=== PATIENT | female | born 1985 | race Caucasian/White ===

== ENCOUNTER 2020-07-23 12:07 | Emergency (ER) | payer SELFPAY ==
[~2020-07-23] VITALS: Ht 172.7 cm; Wt 107.0 kg
[~2020-07-23 12:07] MED LIST: EMETROL ORAL S118 ML PO; PEPTO-BISM262 MG/15 PO
== END 2020-07-23 13:51 | disposition home or self-care (01) ==
LOC: ED 12:07
DX: S63.284A Dislocation of proximal interphalangeal joint of right ring finger, initial encounter (principal); W22.8XXA Striking against or struck by other objects, initial encounter; Z87.891 Personal history of nicotine dependence; Z88.0 Allergy status to penicillin; Z88.8 Allergy status to other drugs, medicaments and biological substances
CPT/HCPCS: 26770; 73140; 99283-25

== ENCOUNTER 2023-03-02 12:41 | Emergency (ER) | payer OTHER ==
[~2023-03-02] VITALS: Ht 172.7 cm; Wt 104.3 kg
--- OUTSIDE RECORDS SUMMARY | ~2023-03-02 | XMS | Continuity of Care Document ---
Demographics + + + | Address | [address] | | | [place] [address] | + + + | Preferred Language | Unknown | + + + | Marital Status | | + + + | Caodaism Affiliation | Unknown | + + + | Race | White | + + + | Ethnic Group | Unknown | + + + Author + + + | Author | [facility] | + + + | Organization | [facility] | + + + | Address | [address] | | | [place] [address] | + + + | Phone | | + + + Care Team Providers + + + + | Care Marine Fireman Name | Role | Phone | + + + + Unavailable | Unavailable | + + + + Allergies and Intolerances + + + + + | date | description | facility | type | + + + + + | (no date) | clavulanic acid | [facility] | (unknown) | + + + + + | (no date) | amoxicillin | [facility] | (unknown) | + + + + + Encounters No information. Functional Status No information. Immunizations No information. Medications No information. Problems No information. Procedures No information. Results/Labs No information. Social History No information. Vital Signs No information."
--- OUTSIDE RECORDS SUMMARY | ~2023-03-02 | XMS | Continuity of Care Document ---
Demographics + + + | Address | [address] | | | [place] [address] | + + + | Preferred Language | Unknown | + + + | Marital Status | | + + + | Samaritan Affiliation | Unknown | + + + | Race | White | + + + | Ethnic Group | Unknown | + + + Author + + + | Author | [facility] | + + + | Organization | [facility] | + + + | Address | [address] | | | [place] [address] | + + + | Phone | | + + + Care Team Providers + + + + | Care Firefighting Equipment Specialist Name | Role | Phone | + [...]
[2023-03-02] MEDS ORDERED: SERTRALINE HCL100 MG PO (14:39)
[2023-03-02] MEDS ORDERED: LISINOPRIL2.5 MG PO (14:39)
[2023-03-02] MEDS ORDERED: METFORMIN HCL500 MG PO (14:39)
[2023-03-02] MEDS ORDERED: VITAMIN D21250 MCG PO (14:40)
[2023-03-02 16:30] VITALS: BP 127/75
== END 2023-03-02 16:30 | disposition home or self-care (01) ==
LOC: ED 12:41
DX: S03.41XA Sprain of jaw, right side, initial encounter (principal); X58.XXXA Exposure to other specified factors, initial encounter; Z87.891 Personal history of nicotine dependence; Z88.0 Allergy status to penicillin; Z88.1 Allergy status to other antibiotic agents; Z79.899 Other long term (current) drug therapy
CPT/HCPCS: 99283

== ENCOUNTER 2023-07-18 05:56 | Day surgery (SDC) | payer OTHER ==
[2023-07-12 13:40] VITALS: BP 100/68
[~2023-07-18] VITALS: Ht 172.7 cm; Wt 98.2 kg
[~2023-07-18 05:56] MED LIST changes: +LISINOPRIL2.5 MG PO; +METFORMIN HCL500 MG PO; +SERTRALINE HCL100 MG PO; +VITAMIN D21250 MCG PO
[2023-07-18 06:09] VITALS: BP 122/72
[2023-07-18] MEDS ORDERED: MOUNJARO2.5 MG/0.5 SQ (06:13)
[2023-07-18] MEDS ORDERED: FENOFIBRATE145 MG PO (06:13)
--- NOTE | 2023-07-18 07:17 | NUR ---
PT IN GOOD SPIRITS. NO CONCERNS. LEFT ROOM WHEN CLOTHING CHANGE WAS REQUIRED. PRAYED SILENTLY FOR SUCCESSFUL PROCEDURE AND [facility] RECOVERY.
--- NOTE | 2023-07-18 09:31 | NUR ---
07/18/23 0931 Sonali Fraga SNORING RESPIRATIONS HEARD. JAW THRUST OPENS AIRWAY. MASK FOG IS VISUALIZED.
[2023-07-18] MEDS ORDERED: PERCOCET 7.5-31 EACH PO (09:43)
[2023-07-18] MEDS ORDERED: ACETAMINOPHEN325 M1 PO (09:44)
[2023-07-18] MEDS ORDERED: TYLENOL EXTRA500 MG PO (09:44)
--- NOTE | 2023-07-18 10:05 | NUR ---
PT ARRIVES TO DS UNIT VIA STRETCHER FROM PACU. PT IS A&O X4 AND REPORTS NO NAUSEA, DIZZINESS, N/T AT THIS TIME. REPORT RECEIVED FROM CAYLA LOUISE W/ AT BEDSIDE. PRESCRIPTION GIVEN TO TO TAKE TO PHARMACY AND GET TAMPON FOR PT AT HER REQUEST. ABDOMINAL BINDER IN PLACE. AMY DRAIN IS TO SUCTION W/SMALL AMOUNT OF SS DRAINAGE AT THIS TIME, PT EDUCATED ABOUT NOT PULLING AND MAINTAINING POSITIONING OF AMY DRAIN, AND PT STATE VERBAL UNDERSTANDING AT THIS TIME. PT REPORTS PAIN 6/10 AT THIS TIME, CRACKERS/JELLO/ICE WATER AT BEDSIDE. CALL LIGHT WITHIN REACH, NO FURTHER NEEDS AT THIS TIME.
[2023-07-18 10:06] VITALS: BP 126/60
--- NOTE | 2023-07-18 10:34 | NUR ---
IN PT ROOM FOR CLERICAL TRANSCRIBER. PT TOLERATED ORAL FOODS W/OUT ANY DIFFICULTY SWALLOWING AND NO REPORTED NAUSEA. PAIN CLERICAL TRANSCRIBER (SEE EMAR). CALL LIGHT WITHIN REACH, NO FURTHER NEEDS AT THIS TIME.
[2023-07-18 11:06] VITALS: BP 111/60
--- NOTE | 2023-07-18 11:15 | NUR ---
IN PT ROOM TO ANSWER CALL LIGHT FOR ASSISTANCE TO USE RESTROOM. STANDBY ASSIST W/PT TO RESTROOM FOR 200 ML OUTPUT OF URINE. SMALL AMOUNT OF BLOOD D/T PT ON PERIOD AT THIS TIME. PT REPORTS SMALL AMOUNT OF DIZZINESS DURING AMBULATION BACK TO ROOM. PT IN BED, COOL RAG PROVIDED FOR FOREHEAD, PT STATES DIZZINESS SUBSIDING W/REST. WARM BLANKETS PROVIDED. CALL LIGHT WITHIN REACH, NO FURTHER NEEDS AT THIS TIME.
--- NOTE | 2023-07-18 11:41 | NUR ---
IN ROOM TO ANSWER PT CALL LIGHT, PT STATES SHE IS READY TO GO HOME. PT STATES PAIN HAS REDUCED TO 1 OR 2/10 AT THIS TIME. SURGICAL DRESSING INTACT W/SMALL AMOUNT OF SS DRAINAGE AT AMY DRAIN SITE AND MIDLINE INCISION SITE, ABDOMINAL BINDER IN PLACE. PT GETTING DRESSED AT THIS TIME, CALL LIGHT WITHIN REACH, AT BEDSIDE TO ASSIST.
--- NOTE | 2023-07-18 11:54 | NUR ---
IN PT ROOM FOR DISCHARGE EDUCATION. PT AND PT STATE VERBAL UNDERSTANDING AND NO FURTHER QUESTIONS AT THIS TIME. AMY DRAIN EMPTIED W/20 ML OUTPUT OF SS FLUID, PT AND PT STATE VERBAL UNDERSTANDING OF DEMONSTRATION PROVIDED. IV SITE DC'ED, WNL. PT OFF OF UNIT VIA WC TO PASSENGER SIDE OF 'S TRUCK @1210. PT AND PT STATE NO FURTHER NEEDS AT THIS TIME. ALL BELONGINGS IN PT POSSESSION.
[2023-07-18 11:58] VITALS: BP 107/65
--- NOTE | 2023-07-18 15:09 | EKG ---
[facility] [address] [place], [place] [address] Signed Normal sinus rhythm Low voltage QRS Borderline ECG No previous ECGs available Confirmed by ARLEEN DELGADO MD ([id number]) on 07/18/2023 3:09:06 PM Electronically Signed By: ARLEEN DELGADO 07/18/23 1509 PATIENT NAME: FRANCES VINCENT Electrocardiogram DATE OF : 81 PHYSICIAN: ARLEEN DELGADO REPORT #: [id number] REPORT IS CONFIDENTIAL AND NOT TO BE RELEASED WITHOUT AUTHORIZATION
--- NOTE | 2023-07-18 19:08 | OR ---
[facility] [address] [place], [place] [address] Signed DATE OF OPERATION: 07/18/2023 SURGEON: Vanna London MD PREOPERATIVE DIAGNOSES: 1. Incarcerated incisional hernia, supraumbilical area. 2. Obesity. POSTOPERATIVE DIAGNOSIS: Fascial defect, 6.0 cm, incarcerated viscus omentum. PROCEDURES: 1. Repair of incarcerated incisional hernia defect size 6 cm with reduction of incarcerated omentum. 2. Implantation of Prolene mesh underlay technique (properitoneal space) with transverse closure of fascia. ANESTHESIA: General endotracheal, Arabella GardnerersonCONG and local 10 mL of 0.25% Marcaine with epinephrine. INDICATIONS: This 37-year-old white woman underwent a supraumbilical hernia repair by Dr. Elver Carballo number of years ago. She is obese and over time developed recurrent hernia. CT scan shows fascial defect to show herniated omentum as well as portion of colon. She is here at this time for repair of the hernia, understand the risk of bleeding, infection, and recurrence. FINDINGS: Bulky omentum with herniated viscus. Hernia sac was well defined and excised. Reduction of the omentum was accomplished to considerable amount was outside of the abdominal cavity. The fascial defect was 6 cm. The properitoneal space was freed circumferentially for at least 8 cm and implantation of a 6 inch x 6 inch Prolene mesh was undertaken placing the mesh in the properitoneal space. The mesh was secured with Prolene sutures with Prolene pledgets. Transverse reapproximation of the fascia was undertaken with interrupted 0-Prolene with Prolene pledgets as well. Given the space of the subcutaneous space, a 7 mm flat Rob drain was placed as well. DESCRIPTION OF PROCEDURE: The patient was brought to the operating room, given a general endotracheal anesthetic. Electronically Signed By: VANNA LONDON MD 07/18/23 1908 PATIENT NAME: FRANCES VINCENT OPERATIVE REPORT DATE OF : 81 REPORT #: [id number] PHYSICIAN: VANNA LONDON MD PCP: KATHY GOMEZ PAC REPORT IS CONFIDENTIAL AND NOT TO BE RELEASED WITHOUT AUTHORIZATION [facility] [address] [place], [place] [address] Signed Preoperative antibiotic Ancef was given. Sequential compression device stockings used and heparin subcutaneously administered. The abdomen was prepared with a chlorhexidine solution and draped sterilely. A supraumbilical incision from the past was incised and dissection carried through the thick abdominal wall pannus encountering ultimately the hernia sac. The hernia sac was freed from surrounding subcutaneous tissue. The fascial defect defined more fully. There appeared to be a transverse fascial defect. A few Prolene sutures were noted, I did not see mesh as part of the repair. The hernia sac was incised and passed for Pathology and the incarcerated viscus was actually the omentum. There was no sign of hollow viscus (colon) within the hernia. The omentum was ultimately reduced into the abdominal cavity. The fascial edges were grasped and the peritoneal remnant was freed from the overlying fascia circumferentially with blunt and electrocautery dissection extending at least 8 cm circumferentially. The remnant of the hernia sac or peritoneum was reapproximated with running 2-0 Vicryl suture. A 6 inch x 6 inch piece of Prolene mesh was cut to an elliptical configuration and secured in the properitoneal space with interrupted 0-Prolene sutures with Prolene pledgets. The mesh was covering the fascial defect circumferentially quite widely. The midline fascia was then reapproximated transversely over the mesh repair with interrupted 0-Prolene sutures with Prolene pledgets in a vertical mattress configuration. Irrigation was undertaken. A 10 mL of 0.25% Marcaine with epinephrine was injected locally. Given the rather sizable space in the subcutaneous space, a 7 mm flat Rob drain was passed through a right-sided stab incision into the depths of the wound and Darryl's fascia was then reapproximated with interrupted 2-0 Vicryl. The skin was then closed with running subcuticular 3-0 Vicryl. Steri-Strips were applied as was an Acticoat dressing. The drains attached to bulb suction. She was ultimately extubated and transferred to the recovery room in good condition, having suffered no complications. Sponge, needle, and instrument counts reported as correct x3. Blood loss was less than 25 mL in aggregate. MD CAROLINE Solares/MODL /[id number] cc: Kathy Gomez PA-C Electronically Signed By: VANNA LONDON MD 07/18/23 1908 PATIENT NAME: FRANCES VINCENT OPERATIVE REPORT DATE OF : 81 REPORT #: [id number] PHYSICIAN: VANNA LONDON MD PCP: KATHY GOMEZ REPORT IS CONFIDENTIAL AND NOT TO BE RELEASED WITHOUT AUTHORIZATION [facility] [address] [place], [place] [address] Signed Copies: KATHY GOMEZ ~ Electronically Signed By: VANNA LONDON MD 07/18/23 1908 PATIENT NAME: FRANCES VINCENT OPERATIVE REPORT DATE OF : 81 REPORT #: [id number] PHYSICIAN: VANNA LONDON MD PCP: KATHY GOMEZ REPORT IS CONFIDENTIAL AND NOT TO BE RELEASED WITHOUT AUTHORIZATION
--- NOTE | 2023-07-24 16:38 | PATH ---
[facility] [address] [place], [place] [address] Signed SPECIMEN(S): A INCISIONAL HERNIA SAC SPECIMEN SOURCE: A. INCISIONAL HERNIA SAC VS CLINICAL HISTORY: Incisional hernia repair - supraumbilical. Recurrent ventral incisional hernia. FINAL PATHOLOGIC DIAGNOSIS: Incisional hernia sac: - [place] soft tissue consistent with clinical hernia sac. JVR:[facility] MICROSCOPIC EXAMINATION: Histologic sections of all submitted blocks are examined by light microscopy. These findings, together with the gross examination, support the pathologic diagnosis. GROSS DESCRIPTION: The specimen, labeled and designated "Sandra, incisional hernia sac," is received in formalin and consists of an irregular-shaped, fibroadipose tissue fragment that measures 10.5 x 6.5 x 3.3 cm. The outside surface is violaceous, smooth, and focally congested. Sectioning through the specimen reveals yellow-lewis, focally congested, fibromembranous and fibroadipose tissue. Conversion Developer sections are submitted in (A1). JS (under the direct supervision of a pathologist) The Gross Description was prepared using a voice recognition system. The report was reviewed for accuracy; however, sound-alike word errors, addition and/or deletions may occur. If there is any question about this report, please contact Client Services. PERFORMING LABORATORY: Technical component was performed by [facility], [address] [place] [id number] (CLIA# [id number]). Professional interpretation was performed by [facility] - [facility], [address] [place] [id number] (CLIA#: [id number]). Diagnostician: Fercho Johnson MD PATIENT NAME: FRANCES VINCENT PATHOLOGY DATE OF : [birth year] REPORT #: [id number] PHYSICIAN: [facility] PCP: JAKE MA PAC REPORT IS CONFIDENTIAL AND NOT TO BE RELEASED WITHOUT AUTHORIZATION [facility] [address] [place] [address] Signed Pathologist Electronically Signed 07/24/2023 Copies: ~ PATIENT NAME: FRANCES VINCENT PATHOLOGY DATE OF : [birth year] REPORT #: [id number] PHYSICIAN: [facility] PCP: JAKE MA PAC REPORT IS CONFIDENTIAL AND NOT TO BE RELEASED WITHOUT AUTHORIZATION
== END 2023-07-18 12:10 | disposition home or self-care (01) ==
LOC: DS 05:56
PROVIDERS: ATTEND Surgery
PROC: 0WUF0JZ Supplement Abdominal Wall with Synthetic Substitute, Open Approach (ICD-10-PCS; principal; 2023-07-18 07:30)
DX: K43.0 Incisional hernia with obstruction, without gangrene (principal); E66.9 Obesity, unspecified; E11.9 Type 2 diabetes mellitus without complications; I10 Essential (primary) hypertension; Z68.34 Body mass index [BMI] 34.0-34.9, adult
CPT/HCPCS: 00840; 84703; 93005; 93010; C1781; J0131; J0690; J1100; J1644; J1885; J2250; J2405; J2704; J3010; J3490; J7121